=== PATIENT | female | born 1940 | race Caucasian/White ===

== ENCOUNTER 2018-09-09 14:50 | Observation (INO) | payer MEDICARE, BC ==
[2018-09-09] MEDS ORDERED: Triamcinolone Acetonide 40 MG/ML 1 ML MDV INJECT ONE (15:30)
[2018-09-09] MEDS ORDERED: Bupivacaine 0.5% 10 ML SDV INJECT ONE (15:30)
--- NOTE | 2018-09-09 15:31 | EDM.PDOC ---
ED HPI GENERAL MEDICAL PROBLEM - General Chief Complaint: Lower Extremity Injury/Pain Stated Complaint: [facility] Time Seen by Provider: 09/09/18 15:05 Source of Information: Reports: Patient, EMS History Limitations: Reports: No Limitations - History of Present Illness INITIAL COMMENTS - FREE TEXT/NARRATIVE: 78-year-old female with severe left hip and leg pain for the past 2 days. It started when she was just bending over putting on her pants when she developed a searing pain from her hip to her knee. Since that time she's been having trouble getting around, getting out of bed and nothing seems to be helping. Last December she had an intra-articular injection of the left hip which gave her good relief for several months up until recently. She thinks this may be a different type of pain however. No fevers or chills, no external rashes or redness. No falls or other trauma. No other significant joint problems. Onset: Sudden (Started fairly suddenly after bending over 2 days ago) Location: Reports: Pelvis, Lower Extremity, Left Quality: Reports: Burning, Sharp Severity: Severe Worsens with: Reports: Other (Any pressure to the area is painful), Movement Associated Symptoms: Reports: Weakness. Denies: Fever/Chills, Loss of Appetite , Malaise, Nausea/Vomiting, Shortness of Breath hip Pain Score (Numeric/FACES): 2 - Related Data Allergies Allergy/AdvReac Type Severity Reaction Status Date / Time Penicillins Allergy Cannot Verified 09/09/18 19:12 Remember Home Meds: Home Meds Cholecalciferol (Vitamin D3) [Vitamin D3] 1,000 unit PO DAILY 12/19/17 [History] Flaxseed Oil [Flaxseed] 1,000 mg PO DAILY 12/19/17 [History] Gluc Blanco Dipo Ch/Jacinto Blanco/C/Steven [Glucosamine Chondroitin Caplet] 1 each PO DAILY 12/19/17 [History] Multivitamin [Multi-Vitamin Daily] 1 each PO DAILY 12/19/17 [History] [place]-3/DHA/Epa/Fish Oil [[place]-3 Fish Oil 1,000 MG Sfgl] 1,000 mg PO DAILY 09/07 [History] Metoprolol Succinate 1 tab PO DAILY 09/09/18 [History] Social & Family History - Tobacco Use Smoking Status *Q: Never Smoker Review of Systems - Review of Systems Review Of Systems: See Below Constitutional: Denies: Fever Respiratory: Reports: No Symptoms Cardiovascular: Reports: No Symptoms GI/Abdominal: Reports: No Symptoms Genitourinary: Reports: No Symptoms Musculoskeletal: Reports: Other (Long history of diffuse arthritis) Skin: Reports: No Symptoms Neurological: Reports: No Symptoms. Denies: Headache ED EXAM, GENERAL - Physical Exam Exam: See Below Exam Limited By: No Limitations General Appearance: Alert, Mild Distress Eye Exam: Bilateral Eye: EOMI Respiratory/Chest: No Respiratory Distress Cardiovascular: Regular Rate, Rhythm GI/Abdominal: Non-Tender Extremities: Other (Any passive range of motion of the left leg and hip causes significant pain. She is exquisitely tender to palpation over the lateral hip, the greater trochanteric area and groin. There is minimal to no pain under the iliac crest.) Neurological: Alert, Oriented, Other (No sensory loss of the distal left leg, motor deficits are difficult to determine due to pain) Skin Exam: Warm, Dry Course - Vital Signs Last Recorded V/S: Last Vital Signs Temp 98.4 F 09/11/18 03:00 Pulse 84 09/11/18 03:00 Resp 14 09/11/18 03:00 BP 156/88 H 09/11/18 03:00 Pulse Ox 95 09/11/18 03:00 - Orders/Labs/Meds Orders: Medication Orders Acetaminophen (Tylenol) 650 mg PO Q4H PRN PRN Reason: Pain (Mild 1-3)/fever Last Admin: 09/11/18 06:10 Dose: 650 mg Admin: 09/11/18 01:55 Dose: 650 mg Admin: 09/10/18 21:17 Dose: 650 mg Admin: 09/10/18 07:58 Dose: 650 mg Hydromorphone HCl (Dilaudid) 0.5 mg IVPUSH Q2H PRN PRN Reason: Pain (severe 7-10) Last Admin: 09/10/18 21:17 Dose: 0.5 mg Ketorolac Tromethamine (Toradol) 30 mg IVPUSH Q6H PRN PRN Reason: Pain (moderate 4-6) Lisinopril (Prinivil) 10 mg PO DAILY [facility] Last Admin: 09/10/18 12:48 Dose: Not Given Metoprolol Succinate (Toprol Xl) 50 mg PO DAILY [facility] Ondansetron HCl (Zofran Odt) 4 mg PO Q6H PRN PRN Reason: Nausea able to take PO Oxycodone HCl (Oxycodone) 5 mg PO Q4H PRN PRN Reason: Pain (moderate 4-6) Last Admin: 09/11/18 06:10 Dose: 5 mg Admin: 09/11/18 01:54 Dose: 5 mg Admin: 09/10/18 21:14 Dose: 5 mg Admin: 09/10/18 08:00 Dose: 5 mg Admin: 09/10/18 03:43 Dose: 5 mg Polyethylene Glycol (Miralax) 17 gm PO DAILY PRN PRN Reason: Constipation Senna/Docusate Sodium (Senna Plus) 1 tab PO BID PRN PRN Reason: Constipation Labs: Laboratory Tests 09/09/18 09/09/18 Range/Units 17:06 17:06 WBC 9.9 (4.5-11.0) K/uL RBC 4.46 (3.30-5.50) M/uL Hgb 12.5 (12.0-15.0) g/dL Hct 37.7 (36.0-48.0) % MCV 85 (80-98) fL MCH 28 (27-31) pg MCHC 33 (32-36) % Plt Count 320 (150-400) K/uL Neut % (Auto) 76 H (36-66) % Lymph % (Auto) 13 L (24-44) % [place] % (Auto) 10 H (2-6) % Eos % (Auto) 0 L (2-4) % Baso % (Auto) 0 (0-1) % Sodium 140 (140-148) mmol/L Potassium 4.1 (3.6-5.2) mmol/L Chloride 104 (100-108) mmol/L Carbon Dioxide 26 (21-32) mmol/L Anion Gap 9.9 (5.0-14.0) mmol/L BUN 25 H (7-18) mg/dL Creatinine 1.0 (0.6-1.0) mg/dL Est Cr Clr Drug Dosing 36.67 mL/min Estimated GFR (MDRD) 54 L (>60) Glucose 126 H (74-106) mg/dL Calcium 9.9 (8.5-10.1) mg/dL Total Bilirubin 0.3 (0.2-1.0) mg/dL AST 16 (15-37) U/L ALT 23 (12-78) U/L Alkaline Phosphatase 89 (46-116) U/L Total Protein 7.2 (6.4-8.2) g/dL Albumin 3.5 (3.4-5.0) g/dL Globulin 3.7 H (2.3-3.5) g/dL Albumin/Globulin Ratio 1.0 L (1.2-2.2) Meds: Medications Generic Name Dose Route Start Last Admin Trade Name Freq PRN Reason Stop Dose Admin Acetaminophen 650 mg 09/09/18 19:07 09/11/18 06:10 Tylenol PO 650 mg Q4H PRN Administration Pain (Mild 1-3)/fever Hydromorphone HCl 0.5 mg 09/09/18 19:07 09/10/18 21:17 Dilaudid IVPUSH 0.5 mg Q2H PRN Administration Pain (severe 7-10) Ketorolac Tromethamine 30 mg 09/09/18 22:00 Toradol IVPUSH Q6H PRN Pain (moderate 4-6) Lisinopril 10 mg 09/10/18 11:15 09/10/18 12:48 Prinivil PO Not Given DAILY [facility] Metoprolol Succinate 50 mg 09/11/18 09:00 Toprol Xl PO DAILY [facility] Ondansetron HCl 4 mg 09/09/18 19:07 Zofran Odt PO Q6H PRN Nausea able to take PO Oxycodone HCl 5 mg 09/09/18 19:07 09/11/18 06:10 Oxycodone PO 5 mg Q4H PRN Administration Pain (moderate 4-6) Polyethylene Glycol 17 gm 09/09/18 19:07 Miralax PO DAILY PRN Constipation Senna/Docusate Sodium 1 tab 09/09/18 19:07 Senna Plus PO BID PRN Constipation Discontinued Medications Generic Name Dose Route Start Last Admin Trade Name Freq PRN Reason Stop Dose Admin Bupivacaine HCl 8 ml 09/09/18 15:30 09/09/18 15:28 Sensorcaine-Mpf 0.5% INJECT 09/09/18 15:31 8 ml ONETIME ONE Administration Hydromorphone HCl 0.5 mg 09/09/18 15:32 09/09/18 15:39 Dilaudid IVPUSH 09/09/18 15:33 0.5 mg ONETIME ONE Administration Ketorolac Tromethamine 30 mg 09/09/18 15:33 09/09/18 15:40 Toradol IVPUSH 09/09/18 15:34 30 mg ONETIME ONE Administration Metoprolol Succinate 25 mg 09/10/18 09:00 09/10/18 08:06 Toprol Xl PO 25 mg DAILY [facility] Administration Triamcinolone Acetonide 40 mg 09/09/18 15:30 09/09/18 15:28 Kenalog-40 INJECT 09/09/18 15:31 40 mg ONETIME ONE Administration - Re-Assessments/Exams Free Text/Narrative Re-Assessment/Exam: 09/09/18 15:52 the left greater trochanteric area was sterilized with Betadine and infiltrated with Marcaine and Kenalog. This provided no significant relief, in fact possibly worsened her pain. She became tearful and very anxious. An IV was started, she was given 0.5 mg of IV Dilaudid and 30 mg of IV Toradol, sent back for CT of the pelvis. 09/09/18 16:57 1. No hip fracture. Severe degenerative changes of the left hip with mild femoral head remodeling. [id number] degenerative changes of the right hip. 2. Nonspecific 1 cm sclerotic lesion in the right ilium. Recommend comparison to prior imaging, if available. 3. Colonic diverticulosis This patient may be a good candidate for surgical hip replacement or possibly another intra-articular joint injection. I consulted the hospitalist service to consider admission for pain control, CBC and CMP were drawn. Patient became fairly hypertensive due to the significant discomfort. Departure - Departure Time of Disposition: 18:56 Disposition: Admitted As Inpatient 66 Condition: Good Clinical Impression: Left hip pain, Primary osteoarthritis of left hip - Discharge Information
[2018-09-09] MEDS ORDERED: HYDROmorphone 0.5 MG/0.5 ML Syringe IVPUSH ONE (15:32)
[2018-09-09] MEDS ORDERED: Ketorolac 30 MG/ML SDV IVPUSH ONE (15:33)
--- NOTE | 2018-09-09 17:42 | PCM.HP ---
H&P History of Present Illness - General Date of Service: 09/09/18 Admit Problem/Dx: Admission Diagnosis/Problem Admission Diagnosis/Problem Hip pain Source of Information: Patient, Provider History Limitations: Reports: No Limitations - History of Present Illness Initial Comments - Free Text/Narative: William presented to the emergency room by ambulance with complaints of left hip pain. She describes severe and sharp left hip pain that starts in the groin and radiates to the lateral part of the hip and down to the knee. She first noticed the pain 2 days ago while she was bending over to take off her pants before bed. She felt a pulling or popping sensation in the hip and developed immediate and fairly severe pain. She has been able to slowly get around over the past couple of days but the pain has been getting worse. She has not slept in 2 nights because of the severity of the pain. She has not tried anything to help with the pain at home. Movement makes the pain worse. She is having difficulty bearing weight because of the severity of the pain. No complaints of shortness of breath, abdominal pain or nausea. Bowels have been moving normally. No preceding injury. She does have a history of severe arthritis in the hip and has had injections with good relief. She has a good functional status and has been able to walk 3 miles a very recently. She does not have shortness of breath or chest pain with walking this distance. No previous surgeries or experience with anesthesia. Workup in the emergency room revealed severe osteoarthritis of the left hip but there was no evidence for fracture of the hip or pelvis. She has severe pain and is not safe for outpatient management. She will be admitted for observation , pain control and orthopedic consultation. - Related Data Allergies/Adverse Reactions: Allergies Allergy/AdvReac Type Severity Reaction Status Date / Time Penicillins Allergy Cannot Verified 09/09/18 14:52 Remember Home Medications: Home Meds Cholecalciferol (Vitamin D3) [Vitamin D3] 1,000 unit PO DAILY 12/19/17 [History] Clindamycin HCl 600 mg PO ASDIRECTED PRN 12/19/17 [History] Flaxseed Oil [Flaxseed] 1,000 mg PO DAILY 12/19/17 [History] Gluc Blanco Dipo Ch/Jacinto Blanco/C/Steven [Glucosamine Chondroitin Caplet] 1 each PO DAILY 12/19/17 [History] Multivitamin [Multi-Vitamin Daily] 1 each PO DAILY 12/19/17 [History] Naproxen 500 mg PO BID PRN 12/19/17 [History] [place]-3/DHA/Epa/Fish Oil [[place]-3 Fish Oil 1,000 MG Sfgl] 1,000 mg PO DAILY 09/07 [History] Metoprolol Succinate 1 tab PO DAILY 09/09/18 [History] Past Medical History Cardiovascular History: Reports: Heart Murmur, Hypertension Musculoskeletal History: Reports: Arthritis Social & Family History - Family History Cardiac: Denies: CAD - Tobacco Use Smoking Status *Q: Never Smoker - Alcohol Use Alcohol Use History: Yes Alcohol Use in Last Twelve Months: Yes Alcohol Use Frequency: Monthly - Recreational Drug Use Recreational Drug Use: No Drug Use in Last 12 Months: No H&P Review of Systems - Review of Systems: Review Of Systems: See Below Free Text/Narrative: A complete 12 point review of systems was obtained. Pertinent positives and negatives are noted in the history of present illness. All other systems were reviewed and were negative except as noted. Exam - Exam Exam: See Below - Vital Signs Vital Signs: Last Vital Signs Temp 37.6 C 09/09/18 17:00 Pulse 83 09/09/18 17:00 Resp 18 09/09/18 17:00 BP 200/90 H 09/09/18 17:00 Pulse Ox 99 09/09/18 17:00 Weight: 70.307 kg - Exam Quality Assessment: No: Supplemental Oxygen General: Alert, Oriented, Cooperative. No: Mild Distress HEENT: Conjunctiva Clear, Mucosa Moist & Reserve. No: Scleral Icterus Neck: Supple, Trachea Midline. No: Lymphadenopathy Lungs: Clear to Auscultation, Normal Respiratory Effort Cardiovascular: Regular Rate, Regular Rhythm, Systolic Murmur GI/Abdominal Exam: Normal Bowel Sounds, Soft, Non-Tender, No Distention Back Exam: No: Full Range of Motion, Vertebral Tenderness Extremities: Normal Inspection, No Pedal Edema, Other (Severe pain with internal and/or external rotation of the hip. Mild tenderness to palpation over the greater trochanter on the left hip. Tenderness with palpation in the groin over the hip.). No: Increased Warmth Peripheral Pulses: 2+: Dorsalis Pedis (L), Dorsalis Pedis (R) Skin: Warm, Dry Neuro Extensive - Mental Status: Alert, Oriented x3, Nl Response to Commands Neuro Extensive - Motor, Sensory, Reflexes: CN II-XII Intact. No: Dysarthria, Abnormal Motor, Tremor Psychiatric: Alert, Normal Affect - Patient Data Lab Results Last 24 hrs: Laboratory Results - last 24 hr 09/09/18 09/09/18 Range/Units 17:06 17:06 WBC 9.9 (4.5-11.0) K/uL RBC 4.46 (3.30-5.50) M/uL Hgb 12.5 (12.0-15.0) g/dL Hct 37.7 (36.0-48.0) % MCV 85 (80-98) fL MCH 28 (27-31) pg MCHC 33 (32-36) % Plt Count 320 (150-400) K/uL Neut % (Auto) 76 H (36-66) % Lymph % (Auto) 13 L (24-44) % [place] % (Auto) 10 H (2-6) % Eos % (Auto) 0 L (2-4) % Baso % (Auto) 0 (0-1) % Sodium 140 (140-148) mmol/L Potassium 4.1 (3.6-5.2) mmol/L Chloride 104 (100-108) mmol/L Carbon Dioxide 26 (21-32) mmol/L Anion Gap 9.9 (5.0-14.0) mmol/L BUN 25 H (7-18) mg/dL Creatinine 1.0 (0.6-1.0) mg/dL Est Cr Clr Drug Dosing 36.67 mL/min Estimated GFR (MDRD) 54 L (>60) Glucose 126 H (74-106) mg/dL Calcium 9.9 (8.5-10.1) mg/dL Total Bilirubin 0.3 (0.2-1.0) mg/dL AST 16 (15-37) U/L ALT 23 (12-78) U/L Alkaline Phosphatase 89 (46-116) U/L Total Protein 7.2 (6.4-8.2) g/dL Albumin 3.5 (3.4-5.0) g/dL Globulin 3.7 H (2.3-3.5) g/dL Albumin/Globulin Ratio 1.0 L (1.2-2.2) Result Diagrams: 09/09/18 17:06 09/09/18 17:06 Imaging Impressions Last 24 hrs: CT scan of the hip - images personally reviewed - there is severe osteoarthritis involving the left hip joint. No evidence for fracture. Radiologist also noted a lytic lesion in the right ilium which was 1 cm in diameter. *Q Meaningful Use (ADM) - VTE Risk Assess *Q Each Risk Factor Represents 1 Point: Obesity ( BMI > 25 kg/m2) Total Score 1 Point Risk Factors: 1 Each Risk Factor Represents 2 Points: None Total Score 2 Point Risk Factors: 0 Each Risk Factor Represents 3 Points: Age 75 Years or Greater Total Score 3 Point Risk Factors: 3 Each Risk Factor Represents 5 Points: None Total Score 5 Point Risk Factors: 0 Venous Thromboembolism Risk Factor Score *Q: 4 - Problem List (1) Left hip pain SNOMED Code(s): 23098405 ICD Code: M25.552 - PAIN IN LEFT HIP Status: Acute Current Visit: Yes (2) Primary osteoarthritis of left hip SNOMED Code(s): 735748308, 969948385 ICD Code: M16.12 - UNILATERAL PRIMARY OSTEOARTHRITIS, LEFT HIP Status: Chronic Current Visit: Yes (3) Essential hypertension SNOMED Code(s): 61980133 ICD Code: I10 - ESSENTIAL (PRIMARY) HYPERTENSION Status: Chronic Current Visit: Yes Problem List Initiated/Reviewed/Updated: Yes Orders Last 24hrs: Active Orders 24 hr Category Date Time Status Patient Status Manage Transfer [TRANSFER] Routine ADT 09/09/18 17:26 Ordered Pelvis wo Cont [CT] Stat Exams 09/09/18 15:28 Taken Resuscitation Status Routine Resus Stat 09/09/18 17:28 Ordered Assessment/Plan Comment:: ASSESSMENT AND PLAN - Severe left hip pain - underlying left hip osteoarthritis which is severe on the imaging. Acute onset of pain without preceding injury. CT revealed significant osteoarthritis of the left hip. Pain has remained significant despite several medication trials in the emergency room. She is not safe for outpatient management at this time. -Pain control -Ice packs as needed -Physical therapy in the morning -Consult with orthopedic surgery in the morning Essential hypertension - patient does have accelerated hypertension with the severe pain which will hopefully calm down as her pain control improves. -Continue metoprolol Maintenance issues - - DVT prophylaxis - mechanical - GI prophylaxis - not indicated - Nutrition - regular diet - Pulido catheter - not indicated CODE STATUS - full code Admission justification - patient will be referred observation status for pain control and orthopedic consultation. Disposition - I would anticipate discharge home after the hospital stay Primary care physician - Brandy Peralta M.D.
[2018-09-09] MEDS ORDERED: HYDROmorphone 0.5 MG/0.5 ML Syringe IVPUSH PRN (19:07)
[2018-09-09] MEDS ORDERED: Ondansetron 4 MG Tab.DIS PO PRN (19:07)
[2018-09-09] MEDS ORDERED: Polyethylene Glycol 3350 Powder 17 GM Packet PO PRN (19:07)
[2018-09-09] MEDS ORDERED: Ketorolac 30 MG/ML SDV IVPUSH PRN (22:00)
[2018-09-10] MEDS: oxyCODONE 5 MG Tab PO PRN ×3 (03:43→21:14)
[2018-09-10] MEDS: Acetaminophen 325 MG Tab PO PRN ×2 (07:58→21:17)
[2018-09-10] MEDS ORDERED: Metoprolol Succinate 25 MG Tab.ER PO SCH (09:00)
--- NOTE | 2018-09-10 10:59 | PCM.PN ---
- General Info Date of Service: 09/10/18 Subjective Update: Ms. Grubbs has felt somewhat improved today, able to ambulate short distances. Continues to experience significant pain in the left groin and hip. - Review of Systems General: Denies: Fever, Chills Pulmonary: Reports: No Symptoms Cardiovascular: Reports: No Symptoms Gastrointestinal: Reports: No Symptoms Musculoskeletal: Reports: Joint Pain, Other - Patient Data Vitals - Most Recent: Last Vital Signs Temp 99.1 F 09/10/18 08:00 Pulse 78 09/10/18 08:06 Resp 16 09/10/18 08:00 BP 176/94 H 09/10/18 08:06 Pulse Ox 96 09/10/18 08:00 Weight - Most Recent: 155 lb 0.006 oz Lab Results Last 24 Hours: Laboratory Results - last 24 hr 09/09/18 09/09/18 Range/Units 17:06 17:06 WBC 9.9 (4.5-11.0) K/uL RBC 4.46 (3.30-5.50) M/uL Hgb 12.5 (12.0-15.0) g/dL Hct 37.7 (36.0-48.0) % MCV 85 (80-98) fL MCH 28 (27-31) pg MCHC 33 (32-36) % Plt Count 320 (150-400) K/uL Neut % (Auto) 76 H (36-66) % Lymph % (Auto) 13 L (24-44) % [place] % (Auto) 10 H (2-6) % Eos % (Auto) 0 L (2-4) % Baso % (Auto) 0 (0-1) % Sodium 140 (140-148) mmol/L Potassium 4.1 (3.6-5.2) mmol/L Chloride 104 (100-108) mmol/L Carbon Dioxide 26 (21-32) mmol/L Anion Gap 9.9 (5.0-14.0) mmol/L BUN 25 H (7-18) mg/dL Creatinine 1.0 (0.6-1.0) mg/dL Est Cr Clr Drug Dosing 36.67 mL/min Estimated GFR (MDRD) 54 L (>60) Glucose 126 H (74-106) mg/dL Calcium 9.9 (8.5-10.1) mg/dL Total Bilirubin 0.3 (0.2-1.0) mg/dL AST 16 (15-37) U/L ALT 23 (12-78) U/L Alkaline Phosphatase 89 (46-116) U/L Total Protein 7.2 (6.4-8.2) g/dL Albumin 3.5 (3.4-5.0) g/dL Globulin 3.7 H (2.3-3.5) g/dL Albumin/Globulin Ratio 1.0 L (1.2-2.2) Med Orders - Current: Current Medications Acetaminophen (Tylenol) 650 mg PO Q4H PRN PRN Reason: Pain (Mild 1-3)/fever Last Admin: 09/10/18 07:58 Dose: 650 mg Hydromorphone HCl (Dilaudid) 0.5 mg IVPUSH Q2H PRN PRN Reason: Pain (severe 7-10) Ketorolac Tromethamine (Toradol) 30 mg IVPUSH Q6H PRN PRN Reason: Pain (moderate 4-6) Metoprolol Succinate (Toprol Xl) 25 mg PO DAILY [facility] Last Admin: 09/10/18 08:06 Dose: 25 mg Ondansetron HCl (Zofran Odt) 4 mg PO Q6H PRN PRN Reason: Nausea able to take PO Oxycodone HCl (Oxycodone) 5 mg PO Q4H PRN PRN Reason: Pain (moderate 4-6) Last Admin: 09/10/18 08:00 Dose: 5 mg Polyethylene Glycol (Miralax) 17 gm PO DAILY PRN PRN Reason: Constipation Senna/Docusate Sodium (Senna Plus) 1 tab PO BID PRN PRN Reason: Constipation Discontinued Medications Bupivacaine HCl (Sensorcaine-Mpf 0.5%) 8 ml INJECT ONETIME ONE Stop: 09/09/18 15:31 Last Admin: 09/09/18 15:28 Dose: 8 ml Hydromorphone HCl (Dilaudid) 0.5 mg IVPUSH ONETIME ONE Stop: 09/09/18 15:33 Last Admin: 09/09/18 15:39 Dose: 0.5 mg Ketorolac Tromethamine (Toradol) 30 mg IVPUSH ONETIME ONE Stop: 09/09/18 15:34 Last Admin: 09/09/18 15:40 Dose: 30 mg Triamcinolone Acetonide (Kenalog-40) 40 mg INJECT ONETIME ONE Stop: 09/09/18 15:31 Last Admin: 09/09/18 15:28 Dose: 40 mg - Exam General: Alert, Oriented, Cooperative, No Acute Distress Lungs: Clear to Auscultation, Normal Respiratory Effort Cardiovascular: Regular Rate, Regular Rhythm, Murmurs (2/6 systolic murmur left sternal border) GI/Abdominal Exam: Soft, Non-Tender, No Organomegaly, No Distention - Problem List Review Problem List Initiated/Reviewed/Updated: Yes - Plan Plan:: ASSESSMENT AND PLAN - Severe left hip pain - underlying left hip osteoarthritis which is severe on the imaging. Acute onset of pain without preceding injury. CT revealed significant osteoarthritis of the left hip. Pain mildly improved today she has been able to walk short distances. -Pain control -Ice packs as needed -Physical therapy -Consult with orthopedic surgery Essential hypertension - blood pressure has remained elevated since admission -Continue metoprolol -Add lisinopril 10 mg by mouth daily Systolic heart murmur -Echocardiogram pending Maintenance issues - - DVT prophylaxis - mechanical - GI prophylaxis - not indicated - Nutrition - regular diet - Pulido catheter - not indicated CODE STATUS - full code Admission justification - patient will be referred observation status for pain control and orthopedic consultation. Disposition - I would anticipate discharge home after the hospital stay Primary care physician - Brandy BARRY
[2018-09-10] MEDS: Lisinopril 10 MG Tab PO SCH (12:48)
--- NOTE | 2018-09-10 19:54 | PCM.CONS ---
H&P History of Present Illness - General Date of Service: 09/10/18 Admit Problem/Dx: Admission Diagnosis/Problem Admission Diagnosis/Problem Hip pain Source of Information: Patient History Limitations: Reports: No Limitations - History of Present Illness Initial Comments - Free Text/Narative: Asked to see this very pleasant 78 yr old white female with sudden onset of severe left hip and groin pain. she states that she was simply bending over to take off her pants when she experienced a sharp pain in her left hip. The pain radiated from her groin to he knee and laterally to the greater trochanter. She has had difficulty with weight bearing since that time. She reports no fall or other injury. She does have a history of left hip pain dating back more than a year, with significant arthritic changes. She had an intra- articular injection of cortisone early last year which helped for quite awhile. Up until this incident she had been doing fairly well. She denies radiation into the foot or lower leg, no tingling or numbness, no foot-drop. She had a cortisone injection into trochanteric bursa in the ED that has helped somewhat. Onset of Symptoms: Reports: Sudden Duration of Symptoms: Reports: Day(s): (2) Location: Reports: Other (Left hip and groin) Quality: Reports: Sharp Severity: Severe Improves with: Reports: Rest Worsens with: Reports: Movement Associated Symptoms: Reports: No Other Symptoms hip Pain Score (Numeric/FACES): 2 - Related Data Allergies/Adverse Reactions: Allergies Allergy/AdvReac Type Severity Reaction Status Date / Time Penicillins Allergy Cannot Verified 09/09/18 19:12 Remember Home Medications: Home Meds Cholecalciferol (Vitamin D3) [Vitamin D3] 1,000 unit PO DAILY 12/19/17 [History] Flaxseed Oil [Flaxseed] 1,000 mg PO DAILY 12/19/17 [History] Gluc Blanco Dipo Ch/Jacinto Blanco/C/Steven [Glucosamine Chondroitin Caplet] 1 each PO DAILY 12/19/17 [History] Multivitamin [Multi-Vitamin Daily] 1 each PO DAILY 12/19/17 [History] [place]-3/DHA/Epa/Fish Oil [[place]-3 Fish Oil 1,000 MG Sfgl] 1,000 mg PO DAILY 09/07 [History] Metoprolol Succinate 1 tab PO DAILY 09/09/18 [History] Past Medical History HEENT History: Reports: Impaired Vision Cardiovascular History: Reports: Heart Murmur, Hypertension [employer] History: Reports: Musculoskeletal History: Reports: Arthritis - Infectious Disease History Infectious Disease History: Reports: Chicken Pox, Measles, Mumps Social & Family History - Family History Family Medical History: Noncontributory Cardiac: Denies: CAD - Tobacco Use Smoking Status *Q: Former Smoker Used Tobacco, but Quit: Yes Month/Year Tobacco Last Used: 33 years - Caffeine Use Caffeine Use: Reports: Coffee - Recreational Drug Use Recreational Drug Use: No Drug Use in Last 12 Months: No H&P Review of Systems - Review of Systems: Review Of Systems: See Below General: Reports: No Symptoms HEENT: Reports: No Symptoms Pulmonary: Reports: No Symptoms Cardiovascular: Reports: No Symptoms Gastrointestinal: Reports: No Symptoms Genitourinary: Reports: No Symptoms Musculoskeletal: Reports: Joint Pain Skin: Reports: No Symptoms Psychiatric: Reports: No Symptoms Neurological: Reports: No Symptoms Hematologic/Lymphatic: Reports: No Symptoms Immunologic: Reports: No Symptoms Exam - Exam Exam: See Below - Vital Signs Vital Signs: Last Vital Signs Temp 36.8 C 09/10/18 16:00 Pulse 66 09/10/18 16:00 Resp 14 09/10/18 16:00 BP 172/79 H 09/10/18 16:00 Pulse Ox 100 09/10/18 16:00 Weight: 70.307 kg - Exam General: Alert, Oriented, Cooperative HEENT: PERRLA, EOMI, Hearing Intact Neck: Supple Back Exam: Normal Inspection, Decreased Range of Motion Extremities: Other (No tenderness over the right greater trochanter and no pain with ROM of the right hip. Strength 5/5 with no pain on resistence. The left has has some mild discomfort with palpation over the greater trochanter. She has pain with resisted abduction, strenght 4-/5. Mild discomfort with resisted flexion, 4+/5 and adduction 4/5. Passive internal and external ROM of the hip elicits pain 7/10 and she has very limited ROM, Flexion to 100 degrees, external rotation to 20 degrees and internal rotation to 5 degrees. Motion of the hip reproduces the pain that she was feeling. ) Peripheral Pulses: 2+: Dorsalis Pedis (L), Dorsalis Pedis (R) Skin: Warm, Dry, Intact Neurological: Cranial Nerves Intact Neuro Extensive - Mental Status: Alert, Oriented x3, Normal Mood/Affect, Normal Cognition Psychiatric: Alert, Normal Affect, Normal Mood - Patient Data Result Diagrams: 09/09/18 17:06 09/09/18 17:06 Consult PN Assessment/Plan Procedures: Procedures CANALITH REPOSITIONING PROC (01/31/18) COMP SCREEN MAMMOGRAM ADD-ON (06/23/15) DRAIN/INJ JOINT/BURSA W/O US (12/19/17) HOT OR COLD PACKS THERAPY (05/13/13) MRI JOINT UPR EXTREM W/O DYE (01/03/14) NEEDLE LOCALIZATION BY XRAY (12/19/17) PT EVAL LOW COMPLEX 20 MIN (01/31/18) THERAPEUTIC ACTIVITIES (01/31/18) THERAPEUTIC EXERCISES (05/13/13) TTE W/DOPPLER COMPLETE (06/04/15) (1) Left hip pain SNOMED Code(s): 34464167 Code(s): M25.552 - PAIN IN LEFT HIP Current Visit: Yes (2) Primary osteoarthritis of left hip SNOMED Code(s): 146175562, 304977334 Code(s): M16.12 - UNILATERAL PRIMARY OSTEOARTHRITIS, LEFT HIP Current Visit : Yes Assessment:: Her recent CT scan and previous left hip recorder gravity prospecting image from the injection show severe osteoarthrits with joint space collapse, sclerosis, osteophyte formation and cystic changes in the femoral head and acetabulum. A new set of x-rays, including a AP pelvis shows end-stage OA of the left hip minimal changes of the right hip. Problem List Initiated/Reviewed/Updated: Yes My Orders Last 24 Hours: My Active Orders 09/10/18 15:29 Hip Min 2V or 3V w Pelvis Lt [CR] Routine Plan: It is my opinion that she is having an acute exacerbation of OA of the left hip. Discussed options with her. Another intra-articular injection may give her some, temporary relief although it is unpredictable and slightly increases the risk of infection if surgery is done relatively soon. PT is unlikely to change things much and aggressive PT is likely to make her symptoms worse. Her only other solution is a total hip arthroplasty. She is a candidate for GOLD by x-ray and current pain and limited ROM. She has no medical contra-indications. She has been anticipating the need for replacement, but has been able to tolerate her symptoms until this episode. She is interested in proceeding with GOLD. She has some personal and family things that she would like to get taken care of prior to the surgery. If she can get around well enough with the relief she has gotten from the injection and medications she can be discharged and we will re-admit her next week for surgery. She should avoid ASA and NSAIDs until then. Risks, benefits and potential complications were discussed, including but not limited to, infection, dislocation and limb length discrepancy. Date Consult Requested: 09/10/18 Patient History Reviewed: Yes Admission H&P Reviewed: Yes Consult Result/Summary:: Recommend GOLD left hip. Notified Requestor: Yes Time Spent (in minutes): 30
[2018-09-11] MEDS: oxyCODONE 5 MG Tab PO PRN ×3 (01:54→10:06)
[2018-09-11] MEDS: Acetaminophen 325 MG Tab PO PRN ×3 (01:55→10:06)
[2018-09-11] MEDS: Lisinopril 10 MG Tab PO SCH (08:45)
[2018-09-11] MEDS ORDERED: Metoprolol Succinate 50 MG Tab.ER PO SCH (09:00)
--- NOTE | 2018-09-11 12:26 | PCM.DCSUM1 ---
Discharge Summary - Hospital Course Brief History: Ms. Grubbs is a 78-year-old woman who was admitted to observation status through the emergency department with acute exacerbation of chronic left hip pain. Severe pain left her unable to transfer and ambulate and it was not felt to be safe to discharge her to home. - Discharge Data Discharge Date: 09/11/18 Discharge Disposition: Home, Self-Care 01 Condition: Fair - Discharge Diagnosis/Problem(s) (1) Primary osteoarthritis of left hip SNOMED Code(s): 501378711, 361039637 ICD Code: M16.12 - UNILATERAL PRIMARY OSTEOARTHRITIS, LEFT HIP Status: Chronic Current Visit: Yes (2) Essential hypertension SNOMED Code(s): 48575298 ICD Code: I10 - ESSENTIAL (PRIMARY) HYPERTENSION Status: Chronic Current Visit: Yes - Patient Summary/Data Consults: Consultations 09/09/18 19:07 Consult to Physician [CONS] Routine Consulting Provider: Dawit Floyd Call Completed to Consulting Physician: No Reason for Consult: severe left hip pain Special Instructions: will call in am 09/10/18 07:00 PT Evaluation and Treatment [CONS] Routine Please Evaluate and Treat. PT Reason for Consult: Ambulation This query below is only for informational purposes and is not editable. Hospital Course: William presented to the emergency room by ambulance with complaints of left hip pain. She describes severe and sharp left hip pain that starts in the groin and radiates to the lateral part of the hip and down to the knee. She first noticed the pain 2 days ago while she was bending over to take off her pants before bed. She felt a pulling or popping sensation in the hip and developed immediate and fairly severe pain. She has been able to slowly get around over the past couple of days but the pain has been getting worse. She has not slept in 2 nights because of the severity of the pain. She has not tried anything to help with the pain at home. Movement makes the pain worse. She is having difficulty bearing weight because of the severity of the pain. No complaints of shortness of breath, abdominal pain or nausea. Bowels have been moving normally. No preceding injury. She does have a history of severe arthritis in the hip and has had injections with good relief. She has a good functional status and has been able to walk 3 miles a very recently. She does not have shortness of breath or chest pain with walking this distance. No previous surgeries or experience with anesthesia. Workup in the emergency room revealed severe osteoarthritis of the left hip but there was no evidence for fracture of the hip or pelvis. She has severe pain and is not safe for outpatient management. She will be admitted for observation, pain control and orthopedic consultation. On admission she was given oral pain medications and was seen daily by physical therapy. Orthopedic consult was obtained, pain was felt to be secondary to her severe osteoarthritis of the left hip. She will be scheduled for outpatient total left hip arthroplasty next week. She will be discharged home with a limited amount of oxycodone to use as needed for pain. She will use a walker for ambulation, activity will otherwise be as tolerated and she will resume her usual diet. She has been instructed to avoid use of aspirin or nonsteroidal medications over the next week. - Patient Instructions Diet: Usual Diet as Tolerated Activity: As Tolerated - Discharge Plan *PRESCRIPTION DRUG MONITORING PROGRAM REVIEWED*: Not Applicable *COPY OF PRESCRIPTION DRUG MONITORING REPORT IN PATIENT JUAN F: Not Applicable Prescriptions/Med Rec: oxyCODONE 5 mg PO Q4H PRN #36 tablet PRN Reason: Pain (Moderate 4-6) Polyethylene Glycol 3350 [MiraLAX] 17 gm PO DAILY PRN #20 packet PRN Reason: Constipation Home Medications: Home Meds Cholecalciferol (Vitamin D3) [Vitamin D3] 1,000 unit PO DAILY 12/19/17 [History] Flaxseed Oil [Flaxseed] 1,000 mg PO DAILY 12/19/17 [History] Gluc Blanco Dipo Ch/Jacinto Blanco/C/Steven [Glucosamine Chondroitin Caplet] 1 each PO DAILY 12/19/17 [History] Multivitamin [Multi-Vitamin Daily] 1 each PO DAILY 12/19/17 [History] [place]-3/DHA/Epa/Fish Oil [[place]-3 Fish Oil 1,000 MG Sfgl] 1,000 mg PO DAILY 09/07 [History] Metoprolol Succinate 1 tab PO DAILY 09/09/18 [History] Polyethylene Glycol 3350 [MiraLAX] 17 gm PO DAILY PRN #20 packet 09/11/18 [Rx] oxyCODONE 5 mg PO Q4H PRN #36 tablet 09/11/18 [Rx] - Discharge Summary/Plan Comment DC Time >30 min.: No - Patient Data Vitals - Most Recent: Last Vital Signs Temp 97.5 F 09/11/18 07:00 Pulse 98 09/11/18 11:00 Resp 14 09/11/18 11:00 BP 132/79 09/11/18 11:00 Pulse Ox 94 L 09/11/18 11:00 Weight - Most Recent: 155 lb 0.006 oz Med Orders - Current: Current Medications Acetaminophen (Tylenol) 650 mg PO Q4H PRN PRN Reason: Pain (Mild 1-3)/fever Last Admin: 09/11/18 10:06 Dose: 650 mg Hydromorphone HCl (Dilaudid) 0.5 mg IVPUSH Q2H PRN PRN Reason: Pain (severe 7-10) Last Admin: 09/10/18 21:17 Dose: 0.5 mg Ketorolac Tromethamine (Toradol) 30 mg IVPUSH Q6H PRN PRN Reason: Pain (moderate 4-6) Stop: 09/14/18 22:01 Lisinopril (Prinivil) 10 mg PO DAILY [facility] Last Admin: 09/11/18 08:45 Dose: 10 mg Metoprolol Succinate (Toprol Xl) 50 mg PO DAILY [facility] Last Admin: 09/11/18 08:43 Dose: 50 mg Ondansetron HCl (Zofran Odt) 4 mg PO Q6H PRN PRN Reason: Nausea able to take PO Oxycodone HCl (Oxycodone) 5 mg PO Q4H PRN PRN Reason: Pain (moderate 4-6) Last Admin: 09/11/18 10:06 Dose: 5 mg Polyethylene Glycol (Miralax) 17 gm PO DAILY PRN PRN Reason: Constipation Senna/Docusate Sodium (Senna Plus) 1 tab PO BID PRN PRN Reason: Constipation Discontinued Medications Bupivacaine HCl (Sensorcaine-Mpf 0.5%) 8 ml INJECT ONETIME ONE Stop: 09/09/18 15:31 Last Admin: 09/09/18 15:28 Dose: 8 ml Hydromorphone HCl (Dilaudid) 0.5 mg IVPUSH ONETIME ONE Stop: 09/09/18 15:33 Last Admin: 09/09/18 15:39 Dose: 0.5 mg Ketorolac Tromethamine (Toradol) 30 mg IVPUSH ONETIME ONE Stop: 09/09/18 15:34 Last Admin: 09/09/18 15:40 Dose: 30 mg Metoprolol Succinate (Toprol Xl) 25 mg PO DAILY [facility] Last Admin: 09/10/18 08:06 Dose: 25 mg Triamcinolone Acetonide (Kenalog-40) 40 mg INJECT ONETIME ONE Stop: 09/09/18 15:31 Last Admin: 09/09/18 15:28 Dose: 40 mg - Exam General: Reports: Alert, Oriented, Cooperative, Moderate Distress Lungs: Reports: Clear to Auscultation, Normal Respiratory Effort Cardiovascular: Reports: Regular Rate, Regular Rhythm, No Murmurs GI/Abdominal Exam: Soft, Non-Tender, No Organomegaly, No Distention
== END 2018-09-11 15:29 | disposition home or self-care (01) ==
LOC: JP.ED 14:50 → JP.ICU 17:26
PROVIDERS: ADMIT Internal Medicine; ATTEND Hospitalist
DX: M16.12 Unilateral primary osteoarthritis, left hip (principal); G89.29 Other chronic pain; I10 Essential (primary) hypertension; Z87.891 Personal history of nicotine dependence; Z79.899 Other long term (current) drug therapy; Z88.0 Allergy status to penicillin
CPT/HCPCS: 20610; 36415; 72192; 73502; 80053; 85025; 93306; 96374; 96375; 96376; 97110; 97161; 97530; 97535; 99285; A9270; G0378; J1170; J1885; J3301; J3490; 99284

== ENCOUNTER 2021-06-03 07:50 | Day surgery (SDC) | payer MEDICARE, BC ==
[2021-06-03] MEDS: Sodium Chloride 0.9% 10 ML Syringe FLUSH PRN (08:22)
--- NOTE | 2021-06-03 13:09 | OR ---
DATE OF PROCEDURE: 06/03/2021 SURGEON: Khadra Roy MD POSTOPERATIVE CARE: Postoperative care will be provided mainly at the [address] [place] [address] [facility] in conjunction with [facility]. PREOPERATIVE DIAGNOSIS: Cataract, right eye. POSTOPERATIVE DIAGNOSIS: Cataract, right eye. PROCEDURE: Phacoemulsification with intraocular lens placement, right eye. ANESTHESIA: Topical and intracameral. ESTIMATED BLOOD LOSS: Minimal. COMPLICATIONS: None. PATHOLOGY SPECIMENS: None. SURGICAL FINDINGS: None. INDICATION FOR PROCEDURE: The patient is an 81-year-old female with history of a visually significant cataract in the right eye, which interfered with activities of daily living. This consisted of a nuclear sclerosis cataract. Following careful discussion of the risks, benefits and alternatives to cataract extraction with intraocular lens placement including blindness and , the patient elected to proceed, and informed, written consent was obtained prior to the procedure. DESCRIPTION OF THE PROCEDURE: The patient was previously identified, and a derek placed above the right eye. All sources, including the patient, indicated that the right eye was the correct eye. The patient was subsequently taken to the operating room where standard monitors were applied. The patient was then prepped and draped in the usual sterile fashion for ophthalmic surgery. Attention was first directed at the 12 o'clock position where a paracentesis port was fashioned. Shugar solution followed by Viscoat was instilled into the eye. Attention was then directed to the 8:30 position where a triplanar incision was made in a near-clear manner using a keratome. A continuous capsulorrhexis was then made using a combination of the cystotome and Utrata forceps. Hydrodissection was achieved using a balanced salt solution, and the lens rotated nicely. Phacoemulsification was then done using a modified [id number] technique without complication. Phaco time was 5.05 CDE. The remaining cortex was removed using the irrigation/aspiration handpiece. Provisc was then instilled into the eye. A Technis lens, model DCB00, at 17.5 Diopters was then placed in the capsular bag using an [place] injector. The remaining viscoelastic was removed using the irrigation/aspiration forceps. All wounds were then checked and found to be watertight. The lid speculum and drapes were removed. Maxitrol ointment was placed in the patient's right eye, and the eye was shielded. The patient tolerated the procedure well. The patient was instructed to follow up tomorrow. All needle and sponge counts were correct at the end of the procedure. There were no surgical findings. Khadra Roy MD /[id number]
== END 2021-06-03 10:24 | disposition home or self-care (01) ==
LOC: JP.SDS 07:50
PROVIDERS: ATTEND Ophthalmology
DX: H25.11 Age-related nuclear cataract, right eye (principal); Z87.891 Personal history of nicotine dependence; Z88.0 Allergy status to penicillin

== ENCOUNTER 2021-06-17 06:20 | Day surgery (SDC) | payer MEDICARE, BC ==
[2021-06-17] MEDS ORDERED: Sodium Chloride 0.9% 10 ML Syringe FLUSH ONE (07:00)
--- NOTE | 2021-06-17 15:59 | OR ---
DATE OF PROCEDURE: 06/17/2021 SURGEON: Khadra Roy MD POSTOPERATIVE CARE: Postoperative care will be provided mainly at the [address] [place] [address] [facility] in conjunction with [facility]. PREOPERATIVE DIAGNOSIS: Cataract, left eye. POSTOPERATIVE DIAGNOSIS: Cataract, left eye. PROCEDURE: Phacoemulsification with intraocular lens placement, left eye. ANESTHESIA: Topical and intracameral. ESTIMATED BLOOD LOSS: Minimal. COMPLICATIONS: None. PATHOLOGY SPECIMENS: None. SURGICAL FINDINGS: None. INDICATION FOR PROCEDURE: The patient is an 81-year-old female with history of a visually significant cataract in the left eye, which interfered with activities of daily living. This consisted of a nuclear sclerosis cataract. Following careful discussion of the risks, benefits and alternatives to cataract extraction with intraocular lens placement including blindness and , the patient elected to proceed, and informed, written consent was obtained prior to the procedure. DESCRIPTION OF THE PROCEDURE: The patient was previously identified, and a derek placed above the left eye. All sources, including the patient, indicated that the left eye was the correct eye. The patient was subsequently taken to the operating room where standard monitors were applied. The patient was then prepped and draped in the usual sterile fashion for ophthalmic surgery. Attention was first directed at the 12 o'clock position where a paracentesis port was fashioned. Shugar solution followed by Viscoat was instilled into the eye. Attention was then directed to the 8:30 position where a triplanar incision was made in a near-clear manner using a keratome. A continuous capsulorrhexis was then made using a combination of the cystotome and Utrata forceps. Hydrodissection was achieved using a balanced salt solution, and the lens rotated nicely. Phacoemulsification was then done using a modified [id number] technique without complication. Phaco time was 6.07 CDE. The remaining cortex was removed using the irrigation/aspiration handpiece. Provisc was then instilled into the eye. A Technis lens, model DCB00, at 18.0 diopters was then placed in the capsular bag using an [place] injector. The remaining viscoelastic was removed using the irrigation/aspiration forceps. All wounds were then checked and found to be watertight. The lid speculum and drapes were removed. Maxitrol ointment was placed in the patient's left eye, and the eye was shielded. The patient tolerated the procedure well. The patient was instructed to follow up tomorrow. All needle and sponge counts were correct at the end of the procedure. There were no surgical findings. Khadra Roy MD /[id number]
== END 2021-06-17 08:26 | disposition home or self-care (01) ==
LOC: JP.SDS 06:20
PROVIDERS: ATTEND Ophthalmology
DX: H25.12 Age-related nuclear cataract, left eye (principal); Z87.891 Personal history of nicotine dependence; Z88.0 Allergy status to penicillin
CPT/HCPCS: 66984; V2632

== ENCOUNTER 2022-09-30 14:14 | Emergency (ER) | payer MEDICARE, BC ==
[2022-09-30] MEDS ORDERED: Labetalol 20 MG/4 ML Syringe IVPUSH ONE (15:03)
[2022-09-30 15:09] LABS: ESTIMATED GFR 56 mL/min (>60)
[2022-09-30] MEDS ORDERED: Tenecteplase 50 MG Kit IV ONE (15:10)
[2022-09-30] MEDS ORDERED: Iopamidol 755 Mg/ML 100 ML Bottle IV ONE (15:43)
[2022-09-30] MEDS ORDERED: Sodium Chloride 0.9% 75 ML IV ONE (15:43)
[2022-09-30] MEDS ORDERED: Sodium Chloride 0.9% 10 ML Syringe FLUSH ONE (15:43)
== END 2022-09-30 18:40 ==
LOC: JP.ED 14:14
DX: I69.320 Aphasia following cerebral infarction (principal); I10 Essential (primary) hypertension; Z88.0 Allergy status to penicillin; Z87.891 Personal history of nicotine dependence
CPT/HCPCS: 36415; 70450; 70496; 70498; 80053; 85025; 85610; 93005; 93010; 96374; 96375; 99285; J3101; J3490; Q9967